=== PATIENT | male | born 2000 | race Caucasian/White ===

== ENCOUNTER 2019-02-16 09:52 | Emergency (ER) | payer OTHER ==
[~2019-02-16] VITALS: Ht 182.9 cm; Wt 95.3 kg
[2019-02-16 10:01] VITALS: BP 151/93
--- NOTE | 2019-02-16 10:15 | NUR ---
PT ARRIVED TO ED C/O LEFT EAR CLOGGED X 2 DAYS. DENIES ANY PAIN. NO DRIANAGE, OR REDNESS NOTED ON LEFT EAR. PT STATES PCP ADVISED HIM TO USE EAR DROPS BUT SAID IT DIDNT WORK. LEFT EAR ON VISUALIZATION SHOWS WAX AND BLACK COLOR APPEARANCE NEAR THE EAR DRUM. VSS. STEADY GAIT. NKA. DENIES PMH.
--- NOTE | 2019-02-16 11:02 | NUR ---
KHLOE, EMT AT BEDSIDE. PREPARING TO DO LAVAGE TO DRIANGE PTS LEFT CLOGGED EAR.
[2019-02-16 11:29] VITALS: BP 151/93
--- NOTE | 2019-02-16 11:29 | NUR ---
Patient discharged with v/s stable. Written and verbal after care instructions given and explained. Patient verbalized understanding. Ambulatory with steady gait. All questions addressed prior to discharge. Advised to follow up with PMD.
== END 2019-02-16 11:29 | disposition home or self-care (01) ==
LOC: MED 09:52
DX: H61.22 Impacted cerumen, left ear (principal); R03.0 Elevated blood-pressure reading, without diagnosis of hypertension
CPT/HCPCS: 69210; 99282; 99284